=== PATIENT | female | born 1980 | race Two or more races ===

== ENCOUNTER → 2024-10-24 | Outpatient (CLI) | payer OTHER ==
[2024-10-24 14:46] LABS: T3 Total 1.4 ng/mL (0.60-1.81)
[2024-10-24 14:47] LABS: Free T4 (Free Thyroxine) 1.32 ng/dL (0.89-1.76)
== END | disposition home or self-care (01) ==
LOC: LAB 13:49
DX: R94.6 Abnormal results of thyroid function studies (principal)
CPT/HCPCS: 36415; 84436; 84439; 84443; 84480